=== PATIENT | female | born 1955 | race Caucasian/White ===

== ENCOUNTER → 2018-06-12 | Outpatient (CLI) | payer OTHER ==
[~2018-06-12] MED LIST: ALBU90OI INH; ALBU90OI61 INH; AMLO10 PO; BAYER CHEWABLE81 MG PO; CYAN1000 PO; Citrate Of Mag300 ML PO; HYDACE5 PO; K-Dur20 MEQ PO; LAVAP17G PO; LEVE500 PO; LISI20 PO; METO50 PO; METO50ER PO; Mucinex600 MG PO; NITR.4SL SL; OMEP20ER PO; ONDA4 PO; ONDA4ODT MM; ONDA8ODT MM; PANT20 PO; PARO20 PO; PRAV10 PO; PROC10 PO; PROC25S PR; PROM25 PO; SPACE CHAMBER1 EACH MC; Ventolin/Prove6.7 GM; Zithromax250 MG PO; Zofran Odt4 MG PO; Zofran Odt4 MG SL
[2018-06-12 15:34] LABS: BASOPHILS ABSOLUTE AUTO 0.03 K/mm3 (0.00-0.23); BASOPHILS PERCENT AUTO 0 % (0-2); EOSINOPHILS ABSOLUTE AUTO 0.12 K/mm3 (0.00-0.68); EOSINOPHILS PERCENT AUTO 1 % (0-6); Hematocrit 43.2 % (33.0-51.0); Hemoglobin 15.1 g/dL (11.5-16.0); IMMATURE GRAN ABSOLUTE AUTO 0.03 K/mm3 (0.00-0.10); IMMATURE GRAN PERCENT AUTO 0 % (0-1); LYMPHOCYTES ABSOLUTE AUTO 1.66 K/mm3 (0.84-5.20); LYMPHOCYTES PERCENT AUTO 16 % (21-46); MONOCYTES ABSOLUTE AUTO 0.64 K/mm3 (0.16-1.47); MONOCYTES PERCENT AUTO 6 % (4-13); Mean Corpuscular HGB 31.1 pg (26.0-34.0); Mean Corpuscular Volume 89 fL (80-100); NEUTROPHILS ABSOLUTE AUTO 7.82 K/mm3 (1.96-9.15); NEUTROPHILS PERCENT AUTO 76 % (41-73); Platelet Count 311 K/mm3 (150-400); RDW Coefficient Variation 11.6 % (11.7-14.2); RDW Standard Deviation 37.2 fL (35.1-46.3); Red Blood Cell Count 4.85 M/mm3 (3.80-5.20)
[2018-06-12 15:44] LABS: Albumin, Blood 4.1 g/dL (3.4-5.0); Albumin/Globulin Ratio 1.2 (0.8-1.8); Bilirubin, Total 0.5 mg/dL (0.1-1.0); Bun/Creatinine Ratio 11.6 (12.0-20.0); Calcium, Blood 9.2 mg/dL (8.5-10.1); Creatinine, Blood 1.21 mg/dL (0.40-1.00); Globulin, Blood 3.3 g/dL (2.2-4.0); Potassium, Blood 3.9 mmol/L (3.5-5.5); Total Protein, Blood 7.4 g/dL (6.4-8.2)
== END | disposition home or self-care (01) ==
LOC: LAB EV 15:28 → LAB SHORT 15:28
PROVIDERS: Physician Assistant
DX: I10 Essential (primary) hypertension (principal)
CPT/HCPCS: 80053; 85025

== ENCOUNTER 2019-07-03 10:34 | Inpatient (IN) | payer OTHER ==
[~2019-07-03] VITALS: Ht 172.7 cm; Wt 66.2 kg
[~2019-07-03 10:34] MED LIST changes: +DOCU100 PO; +Kristalose20 GM PO; +LISI5 PO; +METO25ER PO; +MIRALAX17 GM PO; +ONDA8 PO; +Zofran8 MG PO
[2019-07-03] MEDS ORDERED: CLON.1 PO (11:21)
[2019-07-03] MEDS ORDERED: Prinivil5 MG PO (11:21)
[2019-07-03] MEDS ORDERED: GABA300 PO (11:21)
[2019-07-03] MEDS ORDERED: OXYC5 PO (11:21)
[2019-07-03] MEDS ORDERED: Amlodipine Besy10 MG PO (11:25)
[2019-07-03] MEDS ORDERED: Zantac150 MG PO (11:25)
[2019-07-03] MEDS ORDERED: Lactulose10 GM/151 PO (11:25)
[2019-07-03] MEDS ORDERED: Protonix40 MG PO (11:25)
[2019-07-03] MEDS ORDERED: Adult Low Dose81 MG PO (11:25)
[2019-07-03] MEDS ORDERED: Hydrocodone-Ap1 EA23 PO (11:25)
[2019-07-03 11:52] LABS: Source, Urine Clean Catch
[2019-07-03 11:56] LABS: Appearance, Urine Cloudy (Clear); BASOPHILS ABSOLUTE AUTO 0.07 K/mm3 (0.00-0.23); BASOPHILS PERCENT AUTO 0 % (0-2); Blood, Urine 5+ (Neg); Color, Urine Amber (P-Yellow); EOSINOPHILS ABSOLUTE AUTO 0.01 K/mm3 (0.00-0.68); EOSINOPHILS PERCENT AUTO 0 % (0-6); Glucose Qualitative, Urine 1+ (Neg); Hematocrit 49.4 % (33.0-51.0); Hemoglobin 17.3 g/dL (11.5-16.0); IMMATURE GRAN ABSOLUTE AUTO 0.18 K/mm3 (0.00-0.10); IMMATURE GRAN PERCENT AUTO 1 % (0-1); Ketones, Urine 2+ (Neg); LYMPHOCYTES ABSOLUTE AUTO 0.92 K/mm3 (0.84-5.20); LYMPHOCYTES PERCENT AUTO 3 % (21-46); Leukocyte Esterase, Urine 1+ (Neg); MONOCYTES ABSOLUTE AUTO 2.17 K/mm3 (0.16-1.47); MONOCYTES PERCENT AUTO 8 % (4-13); Mean Corpuscular HGB 30.6 pg (26.0-34.0); Mean Corpuscular Volume 87 fL (80-100); NEUTROPHILS ABSOLUTE AUTO 24.47 K/mm3 (1.96-9.15); NEUTROPHILS PERCENT AUTO 88 % (41-73); Nitrite, Urine Neg (Neg); Protein, Urine 4+ (Neg); RDW Coefficient Variation 11.7 % (11.7-14.2); RDW Standard Deviation 37.7 fL (35.1-46.3); Red Blood Cell Count 5.65 M/mm3 (3.80-5.20); Specific Gravity, Urine 1.025 (1.003-1.022); Urobilinogen, Urine 1+ (Normal); White Blood Cell Count 27.82 K/mm3 (4.00-11.30)
[2019-07-03 12:12] LABS: Albumin, Blood 4.1 g/dL (3.4-5.0); Albumin/Globulin Ratio 1.1 (0.8-1.8); Bilirubin, Total 0.8 mg/dL (0.1-1.0); Bun/Creatinine Ratio 15.4 (12.0-20.0); Calcium, Blood 9.2 mg/dL (8.5-10.1); Creatinine, Blood 1.82 mg/dL (0.40-1.00); Globulin, Blood 3.9 g/dL (2.2-4.0); Potassium, Blood 3.3 mmol/L (3.5-5.5); Troponin I 0.016 ng/mL (0.000-0.040)
[2019-07-03 12:24] LABS: Mean Platelet Volume 9.5 fL (9.1-12.4); Platelet Count 328 K/mm3 (150-400)
[2019-07-03 12:28] LABS: Bilirubin, Urine 1+ (Neg)
[2019-07-03 12:30] LABS: Amorphous Mod (0-Heavy); Bacteria Many /hpf; Squamous Epithelial Cells Few /hpf (Few)
[2019-07-03] MEDS ORDERED: KEPPRA250 MG PO (15:16)
--- NOTE | 2019-07-03 19:05 | NUR ---
PATIENT ARRIVES AROUND 1830. IV LEFT A/C LEAKING. IV LEFT UPPER CHEST INFILTRATED. BOTH IV'S PULLED. PATIENT VOMITED TWICE ABOUT 50-100 ML EACH TIME. NO PATIENT ID BAND ON, REPLACED. PATIENT TAKES OFF DRESSING FROM CHEST IV WITH SITE BLEEDING. DRESSING REPLACED. CHECKED FEET FOR POSSIBLE IV SITE, BUT NONE OBVIOUS. REPORT GIVEN TO VANI GUILLEN. AWARE PATIENT NEEDS IV ANTIHYPER TENSIVE AND ANTIVOMITING MED. SUPERVISOR VARNISH AWARE NEEDS IV.
--- NOTE | 2019-07-03 22:48 | NUR ---
HOSPITALIST LIFTER NOTIFIED OF PT INCREASED HEART RATE STATUS OF THE 130'S-140'S AND THAT SHE HAS SUSTAINED THIS RATE FOR GOING ON 2 HOURS. WE ARE GOING TO CONTINUE THE IVF'S AND CONTINUE TO MONITOR HEART RATE. FEELS THAT INCREASED HEART RATE DUE TO DEHYDRATION.
--- NOTE | 2019-07-04 00:07 | NUR ---
CALL RECEIVED FROM [facility] HEART RATE DOWN TO 103.
--- NOTE | 2019-07-04 05:23 | NUR ---
shift summary PT IV PLACED IN LEFT AC INFILTRATED, NEW IV PLACED RIGHT AC PER WILMER CHURCH. IVF'S CONTINUE TO INFUSE. PT HEART RATE HAS STAYED DOWN IN THE UPPER 80'S-90'S. PT LOOKING AND FEELING BETTER THIS AM. IS NOW STEADY ON FEET. IS C/O SOME HEARTBURN, SCHEDULED PROTONIX GIVEN. NO DIARRHEA NOTED THIS SHIFT. HAS VOIDED X2. MEDICATED X1 WITH APRESOLINE WHICH HAS BROUGHT B/P DOWN TO THE 120'S-130'S SYSTOLIC. ALSO MEDICATED X2 FOR NAUSEA. WILL CONTINUE TO MONITOR.
[2019-07-04 06:03] LABS: BASOPHILS ABSOLUTE AUTO 0.05 K/mm3 (0.00-0.23); BASOPHILS PERCENT AUTO 0 % (0-2); EOSINOPHILS ABSOLUTE AUTO 0.01 K/mm3 (0.00-0.68); EOSINOPHILS PERCENT AUTO 0 % (0-6); Hematocrit 44.6 % (33.0-51.0); Hemoglobin 15.2 g/dL (11.5-16.0); IMMATURE GRAN ABSOLUTE AUTO 0.22 K/mm3 (0.00-0.10); IMMATURE GRAN PERCENT AUTO 1 % (0-1); LYMPHOCYTES ABSOLUTE AUTO 1.43 K/mm3 (0.84-5.20); LYMPHOCYTES PERCENT AUTO 5 % (21-46); MONOCYTES ABSOLUTE AUTO 2.14 K/mm3 (0.16-1.47); MONOCYTES PERCENT AUTO 8 % (4-13); Mean Corpuscular HGB 30.9 pg (26.0-34.0); Mean Corpuscular HGB Conc 34.1 g/dL (31.5-36.5); Mean Platelet Volume 9.5 fL (9.1-12.4); NEUTROPHILS ABSOLUTE AUTO 24.34 K/mm3 (1.96-9.15); NEUTROPHILS PERCENT AUTO 86 % (41-73); Platelet Count 245 K/mm3 (150-400); RDW Coefficient Variation 12.2 % (11.7-14.2); RDW Standard Deviation 40.1 fL (35.1-46.3); Red Blood Cell Count 4.92 M/mm3 (3.80-5.20); White Blood Cell Count 28.19 K/mm3 (4.00-11.30)
[2019-07-04 06:12] LABS: Mean Corpuscular Volume 91 fL (80-100)
[2019-07-04 06:23] LABS: Bun/Creatinine Ratio 21.6 (12.0-20.0); Calcium, Blood 7.9 mg/dL (8.5-10.1); Creatinine, Blood 1.11 mg/dL (0.40-1.00); Potassium, Blood 3.5 mmol/L (3.5-5.5)
--- NOTE | 2019-07-04 07:34 | NUR ---
ADVISED PATIENT FEELING BETTER. LAST TIME HAD ANTINAUSEA MED WAS @02AM. VS BETTER THAN YESTERDAY W/ B.P. 132/87. REQUEST CLEAR LIQUIDS. OK TO ORDER.
--- NOTE | 2019-07-04 11:45 | NUR ---
ADVISED SINCE PATIENT WAS VOMITING FOR NUMBER OF DAYS C/O THROAT HURTING AND DOES NOT WANT TO SWALLOW ANYTHING DUE TO PAIN. ORDER CEPACOL.
--- NOTE | 2019-07-04 18:51 | NUR ---
ALERT. ORIENTED. AMBULATORY X 2 IN HALLWAY. TALKED TO ABOUT SOMETHING ELSE,LIDOCAINE, FOR THROAT PAIN CEPACOL NOT WORKING. PATIENT NOT EATTING DUE TO PAIN.LIDOCAINE ORDERED PRN BEFORE EATTING. CHECKING IV WHENEVER GOING IN TO CHECK ON PATIENT TO MAKE SURE RUNNING OK HAD 2 IV'S NOT WORKING YESTERDAY. PATIENT DENIES PAIN AT IV SITE AND NO SWELLING OR REDNESS. REPORT TO NIGHT RN.
--- NOTE | 2019-07-05 02:36 | NUR ---
PT OUT TO SMOKE.
--- NOTE | 2019-07-05 04:33 | NUR ---
SHIFT SUMMARY PT ATTEMPTED TO HAVE SOUP AFTER LIDOCAINE SWISH+SWALLOW ORAL SOLUTION; UNSUCCESSFUL. PT STILL UNABLE TO TOLERATE SWALLOWING FOOD OR LIQUID D/T THROAT PAIN. NO N/V/D. PT IS A&O X 4, INDEPENDENT IN RM. PT OUT TO SMOKE SEVERAL TIMES TONIGHT. LR RUNNING @ 150 ML/HR. PT LAYING IN BED AT THIS TIME, ABLE TO MAKE NEEDS KNOWN. WILL CONT TO MONITOR AND PROVIDE CARE UNTIL PRESUMED BY ONCOMING RN.
[2019-07-05 04:53] LABS: BASOPHILS ABSOLUTE AUTO 0.03 K/mm3 (0.00-0.23); BASOPHILS PERCENT AUTO 0 % (0-2); EOSINOPHILS PERCENT AUTO 0 % (0-6); Hematocrit 39.9 % (33.0-51.0); Hemoglobin 13.2 g/dL (11.5-16.0); IMMATURE GRAN ABSOLUTE AUTO 0.11 K/mm3 (0.00-0.10); IMMATURE GRAN PERCENT AUTO 1 % (0-1); LYMPHOCYTES ABSOLUTE AUTO 1.45 K/mm3 (0.84-5.20); LYMPHOCYTES PERCENT AUTO 8 % (21-46); MONOCYTES PERCENT AUTO 8 % (4-13); Mean Corpuscular HGB 30.6 pg (26.0-34.0); Mean Corpuscular HGB Conc 33.1 g/dL (31.5-36.5); Mean Corpuscular Volume 92 fL (80-100); Mean Platelet Volume 9.5 fL (9.1-12.4); NEUTROPHILS ABSOLUTE AUTO 14.17 K/mm3 (1.96-9.15); NEUTROPHILS PERCENT AUTO 83 % (41-73); Platelet Count 214 K/mm3 (150-400); RDW Coefficient Variation 11.9 % (11.7-14.2); RDW Standard Deviation 40.3 fL (35.1-46.3); Red Blood Cell Count 4.32 M/mm3 (3.80-5.20); White Blood Cell Count 17.16 K/mm3 (4.00-11.30)
[2019-07-05 05:19] LABS: Anion Gap 7 mmol/L (6-16); Blood Urea Nitrogen 18 mg/dL (8-24); Bun/Creatinine Ratio 17.5 (12.0-20.0); CO2, Blood 28 mmol/L (21-32); Chloride, Blood 109 mmol/L (98-108); Creatinine, Blood 1.03 mg/dL (0.40-1.00); Glomerular Filtration Rate 58 (60-); Glucose, Blood 111 mg/dL (70-99); Phosphorus, Blood 1.6 mg/dL (2.5-4.9); Potassium, Blood 3.5 mmol/L (3.5-5.5); Sodium, Blood 144 mmol/L (136-145)
--- NOTE | 2019-07-06 04:56 | NUR ---
SHIFT SUMMARY NO ACUTE CHANGES TONIGHT. PT OUT SEVERAL TIMES TO SMOKE, AMBULATES INDEPENDENTLY. NO N/V TONIGHT. FULL LIQUIDS UNTIL MIDNIGHT, CLEAR LIQUIDS AFTER MIDNIGHT, AND NPO AFTER BREAKFAST FOR UPPER ENDOSCOPY TODAY PER DR HARPER. PT SHOWERED TONIGHT. LR RUNNING @ 150 ML/HR. WILL CONT TO MONITOR AND PROVIDE CARE UNTIL PRESUMED BY ONCOMING RN.
--- NOTE | 2019-07-06 11:14 | NUR ---
PT TAKEN DOWN TO DAY SURGERY FOR SCOPE
--- NOTE | 2019-07-06 11:24 | NUR ---
PT A&OX3. FLAT AFFECT. PT REPORTS 06/19 "THROAT" PAIN THAT "GOES CLEAR DOWN INTO MY STOMACH." PT VOICE APPEARS HOARSE. LUNGS WITH RHONCHI THAT CLEAR WITH COUGH. PT IS CURRENT EVERY DAY SMOKER. NPO SINCE CLEAR LIQUID DIET AT 0800. HISTORY AND ALLERGIES REVIEWED.
--- NOTE | 2019-07-06 17:41 | NUR ---
SUMMARY PT RESTING QUIETLY IN BED, HAS BEEN PLEASANT AND COOPERATIVE WITH CARE, HAD AN UPPER ENDOSCOPY TODAY, HORACE WELL, PT UP IN THE HALLS WALKING INDEPENDENTLY, ENCOURAGED THE PT TO TAKE A WHEELCHAIR FOR SAFETY AND TO PREVENT FALLS, PT HORACE CLEAR LIQUID DIET, ADVANCED TO FULL LIQUID FOR DINNER, VSS, NO ACUTE CHANGES, WILL CONT TO MONITOR
[2019-07-07] MEDS ORDERED: CEPACOL SORE T1 EACH MM (09:30)
[2019-07-07] MEDS ORDERED: ACET325 PO (09:30)
[2019-07-07] MEDS ORDERED: NICO21TP TOP (09:30)
[2019-07-07] MEDS ORDERED: Carafate1 GM/10 ML PO (09:31)
--- NOTE | 2019-07-07 10:38 | NUR ---
SUMMARY/DISCHARGE PT BEING DISCHARGED TO HOME, PT VERBALIZED UNDERSTANDING OF DISCHARGE INSTRUCTIONS REGARDING FOLLOW UP, MEDICATIONS AND DIET, PT STATES SHE PREFERS TO MAKE HER OWN FOLLOW UP APPOINTMENTS, PT WAITING FOR HER RIDE
--- NOTE | 2019-07-07 12:06 | NUR ---
PT'S SPOUSE HER AND WAS ABLE TO TAKE HER OUT SAFELY VIA WHEELCHAIR
[2019-08-19] MEDS ORDERED: ALBU90OI INH (08:45)
[2019-08-19] MEDS ORDERED: LEVE500 PO (08:46)
[2019-08-19] MEDS ORDERED: Ranitidine HCl150 M1 PO (08:46)
[2019-08-19] MEDS ORDERED: METO25ER PO (08:46)
[2019-08-19] MEDS ORDERED: FLUT1DIS5 INH (08:47)
== END 2019-07-07 12:00 | disposition home or self-care (01) | DRG 392 ==
LOC: ER 10:34 → MEDS 15:54
PROVIDERS: Emergency Medicine; Internal Medicine Gastroenterology; ADMIT Internal Medicine
PROC: 0DD58ZX Extraction of Esophagus, Via Natural or Artificial Opening Endoscopic, Diagnostic (ICD-10-PCS; principal; 2019-07-06 12:00)
DX: K52.9 Noninfective gastroenteritis and colitis, unspecified (principal); K50.90 Crohn's disease, unspecified, without complications; N17.9 Acute kidney failure, unspecified; K22.10 Ulcer of esophagus without bleeding; N39.0 Urinary tract infection, site not specified; I10 Essential (primary) hypertension; F17.210 Nicotine dependence, cigarettes, uncomplicated; G40.909 Epilepsy, unspecified, not intractable, without status epilepticus; E11.9 Type 2 diabetes mellitus without complications; Z79.82 Long term (current) use of aspirin; E87.6 Hypokalemia; E86.0 Dehydration; F12.20 Cannabis dependence, uncomplicated; R13.10 Dysphagia, unspecified; K44.9 Diaphragmatic hernia without obstruction or gangrene; K21.0 Gastro-esophageal reflux disease with esophagitis
CPT/HCPCS: 36415; 74177; 80048; 80053; 80069; 81001; 82947; 83605; 83690; 84443; 84484; 85025; 87040; 87086; 88305; 88312; 88342; 93005; 93010; 96361; 96374-59; 96375; 96376; 99285-25; J0360; J1650; J1956; J2405; J2550; J2704; J3480; J7030; J7120; P9612; Q9967

== ENCOUNTER 2019-08-13 23:59 | Emergency (ER) | payer OTHER ==
[~2019-08-13] VITALS: Ht 172.7 cm; Wt 68.0 kg
[~2019-08-13 23:59] MED LIST changes: +ACET325 PO; +Adult Low Dose81 MG PO; +Amlodipine Besy10 MG PO; +CEPACOL SORE T1 EACH MM; +CLON.1 PO; +Carafate1 GM/10 ML PO; +GABA300 PO; +Hydrocodone-Ap1 EA23 PO; +KEPPRA250 MG PO; +Lactulose10 GM/151 PO; +NICO21TP TOP; +OXYC5 PO; +Prinivil5 MG PO; +Protonix40 MG PO; +Zantac150 MG PO
[2019-08-14] MEDS ORDERED: Mupirocin22 GM TOP (00:45)
[2019-08-14] MEDS ORDERED: CEPH500 PO (00:45)
[2019-08-14] MEDS ORDERED: Bactrim Ds Tab1 EACH PO (00:45)
[2019-08-19] MEDS ORDERED: ALBU90OI INH (08:45)
[2019-08-19] MEDS ORDERED: METO25ER PO (08:46)
[2019-08-19] MEDS ORDERED: LEVE500 PO (08:46)
[2019-08-19] MEDS ORDERED: Ranitidine HCl150 M1 PO (08:46)
[2019-08-19] MEDS ORDERED: FLUT1DIS5 INH (08:47)
== END 2019-08-14 01:10 | disposition home or self-care (01) ==
LOC: ER 23:59
DX: S00.81XA Abrasion of other part of head, initial encounter (principal); L03.211 Cellulitis of face; I10 Essential (primary) hypertension; F32.9 Major depressive disorder, single episode, unspecified; F41.9 Anxiety disorder, unspecified; F17.200 Nicotine dependence, unspecified, uncomplicated; Z91.030 Bee allergy status; Z79.899 Other long term (current) drug therapy; Z79.82 Long term (current) use of aspirin; X58.XXXA Exposure to other specified factors, initial encounter
CPT/HCPCS: 99282

== ENCOUNTER 2019-08-25 10:19 | Day surgery (SDC) | payer OTHER ==
[~2019-08-25] VITALS: Ht 172.7 cm; Wt 68.7 kg
[~2019-08-25 10:19] MED LIST changes: +Bactrim Ds Tab1 EACH PO; +CEPH500 PO; +FLUT1DIS5 INH; +Mupirocin22 GM TOP; +Ranitidine HCl150 M1 PO
== END 2019-08-25 12:44 | disposition home or self-care (01) ==
LOC: ORSCSDS 10:19
PROVIDERS: Internal Medicine Gastroenterology
PROC: 0DB58ZX Excision of Esophagus, Via Natural or Artificial Opening Endoscopic, Diagnostic (ICD-10-PCS; principal; 2019-08-25 11:45)
DX: K21.0 Gastro-esophageal reflux disease with esophagitis (principal); K44.9 Diaphragmatic hernia without obstruction or gangrene; I10 Essential (primary) hypertension; J45.909 Unspecified asthma, uncomplicated; F41.8 Other specified anxiety disorders; E11.9 Type 2 diabetes mellitus without complications; G40.909 Epilepsy, unspecified, not intractable, without status epilepticus; F17.210 Nicotine dependence, cigarettes, uncomplicated; Z79.82 Long term (current) use of aspirin; Z79.899 Other long term (current) drug therapy
CPT/HCPCS: 88305; J2704; J7120

== ENCOUNTER 2019-12-07 11:10 | Emergency (ER) | payer OTHER ==
[~2019-12-07] VITALS: Ht 172.7 cm; Wt 76.7 kg
[2019-12-07] MEDS ORDERED: Augmentin 875-1 EACH PO (14:45)
== END 2019-12-07 14:48 | disposition home or self-care (01) ==
LOC: ER 11:10
DX: J32.9 Chronic sinusitis, unspecified (principal); H92.02 Otalgia, left ear; E04.1 Nontoxic single thyroid nodule; I10 Essential (primary) hypertension; F41.9 Anxiety disorder, unspecified; G40.909 Epilepsy, unspecified, not intractable, without status epilepticus; F17.200 Nicotine dependence, unspecified, uncomplicated; Z76.0 Encounter for issue of repeat prescription; Z91.030 Bee allergy status; Z79.82 Long term (current) use of aspirin; Z79.51 Long term (current) use of inhaled steroids
CPT/HCPCS: 36415; 70450; 70486; 93005; 93010; 99284-25

== ENCOUNTER 2019-12-22 14:21 | Day surgery (SDC) | payer OTHER ==
[~2019-12-22 14:21] MED LIST changes: +Augmentin 875-1 EACH PO
== END 2019-12-22 22:53 | disposition home or self-care (01) ==
LOC: US 14:21
DX: R22.1 Localized swelling, mass and lump, neck (principal)
CPT/HCPCS: 38505; 76942

== ENCOUNTER 2020-07-21 22:32 | Inpatient (IN) | payer OTHER ==
[~2020-07-21] VITALS: Ht 172.7 cm; Wt 75.8 kg
[2020-07-21] MEDS ORDERED: PANT20 PO (22:48)
[2020-07-21] MEDS ORDERED: ERGO400 PO (22:48)
[2020-07-21] MEDS ORDERED: LISI5 PO (22:48)
[2020-07-21] MEDS ORDERED: AMLO10 PO (22:48)
[2020-07-21] MEDS ORDERED: METO25ER PO (22:48)
[2020-07-21] MEDS ORDERED: Aspir 8181 MG PO (22:48)
[2020-07-21 23:14] LABS: BASOPHILS ABSOLUTE AUTO 0.03 K/mm3 (0.00-0.23); BASOPHILS PERCENT AUTO 0 % (0-2); EOSINOPHILS ABSOLUTE AUTO 0.06 K/mm3 (0.00-0.68); EOSINOPHILS PERCENT AUTO 0 % (0-6); Hematocrit 49.3 % (33.0-51.0); Hemoglobin 16.5 g/dL (11.5-16.0); IMMATURE GRAN ABSOLUTE AUTO 0.05 K/mm3 (0.00-0.10); IMMATURE GRAN PERCENT AUTO 0 % (0-1); LYMPHOCYTES ABSOLUTE AUTO 2.05 K/mm3 (0.84-5.20); LYMPHOCYTES PERCENT AUTO 15 % (21-46); MONOCYTES ABSOLUTE AUTO 1.04 K/mm3 (0.16-1.47); MONOCYTES PERCENT AUTO 8 % (4-13); Mean Corpuscular HGB 30.2 pg (26.0-34.0); Mean Corpuscular HGB Conc 33.5 g/dL (31.5-36.5); Mean Corpuscular Volume 90 fL (80-100); Mean Platelet Volume 8.9 fL (9.1-12.4); NEUTROPHILS ABSOLUTE AUTO 10.68 K/mm3 (1.96-9.15); NEUTROPHILS PERCENT AUTO 77 % (41-73); Platelet Count 366 K/mm3 (150-400); RDW Standard Deviation 39.7 fL (35.1-46.3); Red Blood Cell Count 5.46 M/mm3 (3.80-5.20); White Blood Cell Count 13.91 K/mm3 (4.00-11.30)
[2020-07-21 23:44] LABS: Albumin, Blood 4.1 g/dL (3.4-5.0); Albumin/Globulin Ratio 1.1 (0.8-1.8); Bilirubin, Total 0.7 mg/dL (0.1-1.0); Calcium, Blood 9.4 mg/dL (8.5-10.1); Creatinine, Blood 1.4 mg/dL (0.40-1.00); Globulin, Blood 3.7 g/dL (2.2-4.0); Potassium, Blood 3.9 mmol/L (3.5-5.5); Total Protein, Blood 7.8 g/dL (6.4-8.2)
[2020-07-22 04:20] LABS: Bun/Creatinine Ratio 10.9 (12.0-20.0); Calcium, Blood 8.4 mg/dL (8.5-10.1); Creatinine, Blood 1.19 mg/dL (0.40-1.00); Potassium, Blood 4.1 mmol/L (3.5-5.5)
--- NOTE | 2020-07-22 04:26 | NUR ---
SHIFT SUMMARY NEW ADMIT THIS AM. AAOX4. NPO. PT REPORTING INCREASED DISCOMFORT WITH MOVEMENT, DECREASED WITH REST. DENIES PAIN MEDS/NAUSEA/EMESIS. ABD SOFT/TENDER. HYPOACTIVE BTX4. PT WITH GENERALIZED WEAKNESS, BED ALARM ON FOR SAFETY. PT ORIENTED TO ROOM + CALL LIGHT USE, ENCOURAGE USE OF CALL LIGHT FOR ASSISTANCE TO RESTROOM. PT CURRENTLY RESTING IN BED WITH CALL LIGHT IN REACH.
[2020-07-22 08:39] LABS: BASOPHILS ABSOLUTE AUTO 0.03 K/mm3 (0.00-0.23); BASOPHILS PERCENT AUTO 0 % (0-2); EOSINOPHILS ABSOLUTE AUTO 0.13 K/mm3 (0.00-0.68); EOSINOPHILS PERCENT AUTO 1 % (0-6); Hematocrit 41.7 % (33.0-51.0); Hemoglobin 13.6 g/dL (11.5-16.0); IMMATURE GRAN ABSOLUTE AUTO 0.05 K/mm3 (0.00-0.10); IMMATURE GRAN PERCENT AUTO 1 % (0-1); LYMPHOCYTES ABSOLUTE AUTO 1.92 K/mm3 (0.84-5.20); LYMPHOCYTES PERCENT AUTO 18 % (21-46); MONOCYTES ABSOLUTE AUTO 1.02 K/mm3 (0.16-1.47); MONOCYTES PERCENT AUTO 10 % (4-13); Mean Corpuscular HGB 30.7 pg (26.0-34.0); Mean Corpuscular HGB Conc 32.6 g/dL (31.5-36.5); Mean Corpuscular Volume 94 fL (80-100); NEUTROPHILS ABSOLUTE AUTO 7.28 K/mm3 (1.96-9.15); NEUTROPHILS PERCENT AUTO 70 % (41-73); Platelet Count 292 K/mm3 (150-400); RDW Coefficient Variation 12.2 % (11.7-14.2); RDW Standard Deviation 42.5 fL (35.1-46.3); Red Blood Cell Count 4.43 M/mm3 (3.80-5.20); White Blood Cell Count 10.43 K/mm3 (4.00-11.30)
[2020-07-22 08:54] LABS: Bun/Creatinine Ratio 11.4 (12.0-20.0); Calcium, Blood 8.4 mg/dL (8.5-10.1); Creatinine, Blood 1.14 mg/dL (0.40-1.00); Potassium, Blood 4.1 mmol/L (3.5-5.5)
--- NOTE | 2020-07-22 16:02 | NUR ---
ASSUMING CARE AT THIS TIME.
--- NOTE | 2020-07-22 16:21 | NUR ---
SHIFT SUMMARY PT IS ALERT AND ORIENTEDx4, FOLLOWS DIRECTIONS. INTIALLY THIS AM PT WAS HAVING ABD PAIN AND NOT PASSING GAS. LATE MORNING PT WAS FEELING BETTER AND STARTED TO PASS GAS. ADVANCE PT TO FULL LIQUID DIET. PT HAD LARGE LUNCH AND WENT FOR A WALK AND WAS HAVING ABD PAIN AGAIN. PT MEDICATED PRN, SEE EMAR AND INSTRUCTED TO SLOW DOWN ON PO INTAKE, PT HAS IMPROVED AGAIN THIS AFTERNOON. PT HAS WALKED IN THE HALLWAYS MULTIPLE TIMES INDEPENDATLY. VITALS HAVE REMAINED STABLE. CARE HANDOFF GIVEN TO CONNER GUILLEN.
--- NOTE | 2020-07-23 04:04 | NUR ---
SHIFT SUMMARY PT RESTED WELL T/O NIGHT. AAOX4. FULL LIQUID DIET, TOLERATING WELL. DISCOMFORT CONTROLLED WITH 25mcg FENTANYL X1 THIS SHIFT WITH MILD NAUSEA CONTROLLED WITH ZOFRAN, NO EMESIS. PT REPORTING LOOSE STOOLS YESTARDAY WITH SMALL AMOUNTS OF FLATUS. INDEPENDENT IN ROOM + OUT OF ROOM FREQUENTLY TO AMBULATE. IVF PER ORDERS. PT CURRENTLY AMBULATING IN [place], [facility].
--- NOTE | 2020-07-23 17:16 | NUR ---
SHIFT SUMMARY PT A&OX4, VSS, TCDB EDU & ENC Q1H/DEMONSTRATED, REP PASSING FLATUS, DENIES BM TODAY, AMBULATING INDEPENDENT TO BRP/HALLWAYS. IVF NS @ 75 MG/HR. FENT 25 MCG X2 DOSES, ZOFRAN X2 DOSES TODAY; NICOTINE PATCH R SHOULDER. HORACE CLEAR LIQ DIET, EDU/ENC TO KEEP INTAKE LOW. WILL REPORT TO ONCOMING EDUAR GUILLEN.
--- NOTE | 2020-07-24 04:14 | NUR ---
SHIFT SUMMARY PT RESTED WELL THIS SHIFT. AAOX4. SIPS CLEARS. PT UP AMBULATING IN HALLS MULTIPLE TIMES INDEPENDENTLY THIS SHIFT. REPORTING MODERATE AMOUNTS OF FLATUS, NO BM. IVF PER ORDERS. NO ACUTE CHANGES THIS SHIFT. PT CURRENTLY RESTING IN BED WITH CALL LIGHT IN REACH.
[2020-07-24 05:03] LABS: Hematocrit 37.4 % (33.0-51.0); Hemoglobin 12.5 g/dL (11.5-16.0); Mean Corpuscular HGB 30.6 pg (26.0-34.0); Mean Corpuscular HGB Conc 33.4 g/dL (31.5-36.5); Mean Corpuscular Volume 92 fL (80-100); Platelet Count 276 K/mm3 (150-400); RDW Coefficient Variation 11.7 % (11.7-14.2); RDW Standard Deviation 39.5 fL (35.1-46.3); Red Blood Cell Count 4.08 M/mm3 (3.80-5.20); White Blood Cell Count 6.39 K/mm3 (4.00-11.30)
[2020-07-24 05:23] LABS: Bun/Creatinine Ratio 4.9 (12.0-20.0); Calcium, Blood 8.2 mg/dL (8.5-10.1); Creatinine, Blood 1.02 mg/dL (0.40-1.00); Potassium, Blood 3.5 mmol/L (3.5-5.5)
--- NOTE | 2020-07-24 14:24 | NUR ---
FULL LQS PT HAS TOLERATED FULL LQS SINCE THIS AM. DENIES N/V; HAVING BMS & PASSING GAS. AMBULATING FREQ IN HALLWAYS. REQUESTS FOR SOFT DIET. DIET CHANGED.
--- NOTE | 2020-07-24 17:33 | NUR ---
DISCHARGE PT UNDERSTANDS INSTRUCTIONS. CONT TO TOLERATE SOFT DIET. PASSING GAS. AMBULATING FREQ. DECLINED W/C OUT. AMBULATED OUT. SCRIPT CALLED TO [facility].
== END 2020-07-24 17:25 | disposition home or self-care (01) | DRG 389 ==
LOC: ER 22:32 → SURS 22:33
PROVIDERS: Internal Medicine; Student in an Organized Health Care Education/Training Program; ADMIT Internal Medicine
DX: K56.600 Partial intestinal obstruction, unspecified as to cause (principal); N17.9 Acute kidney failure, unspecified; I10 Essential (primary) hypertension; I25.10 Atherosclerotic heart disease of native coronary artery without angina pectoris; K21.9 Gastro-esophageal reflux disease without esophagitis; Z87.891 Personal history of nicotine dependence; Z79.82 Long term (current) use of aspirin
CPT/HCPCS: 36415; 74177; 80048; 80053; 83605; 83690; 85025; 85027; 93005; 93010; 96360; 99285-25; C9113; J1650; J2405; J3010; J7030; J7120; Q9967

== ENCOUNTER 2020-11-10 14:45 | Emergency (ER) | payer OTHER ==
[~2020-11-10 14:45] MED LIST changes: +Aspir 8181 MG PO; +ERGO400 PO
== END 2020-11-10 15:37 | disposition left against medical advice (07) ==
LOC: ER 14:45
DX: Z53.21 Procedure and treatment not carried out due to patient leaving prior to being seen by health care provider (principal)

== ENCOUNTER 2021-02-05 13:11 | Emergency (ER) | payer OTHER ==
[~2021-02-05] VITALS: Ht 175.3 cm; Wt 72.6 kg
[2021-02-05] MEDS ORDERED: FLUT1DIS5 (14:25)
[2021-02-05] MEDS ORDERED: GABA300 (14:25)
== END 2021-02-05 16:24 | disposition home or self-care (01) ==
LOC: ER 13:11
DX: Z01.812 Encounter for preprocedural laboratory examination (principal); M25.551 Pain in right hip; G40.909 Epilepsy, unspecified, not intractable, without status epilepticus; I10 Essential (primary) hypertension; Z20.822 Contact with and (suspected) exposure to COVID-19; E11.9 Type 2 diabetes mellitus without complications; K21.9 Gastro-esophageal reflux disease without esophagitis; F17.210 Nicotine dependence, cigarettes, uncomplicated; Z91.030 Bee allergy status; Z79.82 Long term (current) use of aspirin; Z79.899 Other long term (current) drug therapy; W18.30XA Fall on same level, unspecified, initial encounter
CPT/HCPCS: 73502; 96372; 99283-25; J1885; U0003

== ENCOUNTER 2021-07-31 13:21 | Emergency (ER) | payer OTHER ==
[~2021-07-31] VITALS: Ht 175.3 cm; Wt 72.6 kg
[~2021-07-31 13:21] MED LIST changes: +FLUT1DIS5; +GABA300; +ONDANSETRON 4 MG
[2021-07-31 14:30] LABS: Albumin, Blood 3.8 g/dL (3.4-5.0); Albumin/Globulin Ratio 1.2 (0.8-1.8); Bilirubin, Total 0.6 mg/dL (0.1-1.0); Bun/Creatinine Ratio 6.4 (12.0-20.0); Calcium, Blood 8.9 mg/dL (8.5-10.1); Creatinine, Blood 1.1 mg/dL (0.40-1.00); Globulin, Blood 3.2 g/dL (2.2-4.0); Potassium, Blood 3.4 mmol/L (3.5-5.5)
[2021-07-31 14:38] LABS: BASOPHILS ABSOLUTE AUTO 0.02 K/mm3 (0.00-0.23); BASOPHILS PERCENT AUTO 0 % (0-2); EOSINOPHILS ABSOLUTE AUTO 0.11 K/mm3 (0.00-0.68); EOSINOPHILS PERCENT AUTO 1 % (0-6); Hemoglobin 14.8 g/dL (11.5-16.0); IMMATURE GRAN ABSOLUTE AUTO 0.04 K/mm3 (0.00-0.10); IMMATURE GRAN PERCENT AUTO 1 % (0-1); LYMPHOCYTES ABSOLUTE AUTO 1.36 K/mm3 (0.84-5.20); LYMPHOCYTES PERCENT AUTO 17 % (21-46); MONOCYTES ABSOLUTE AUTO 0.52 K/mm3 (0.16-1.47); MONOCYTES PERCENT AUTO 6 % (4-13); Mean Corpuscular HGB Conc 34.4 g/dL (31.5-36.5); Mean Corpuscular Volume 90 fL (80-100); Mean Platelet Volume 9.3 fL (9.1-12.4); NEUTROPHILS ABSOLUTE AUTO 6.21 K/mm3 (1.96-9.15); NEUTROPHILS PERCENT AUTO 75 % (41-73); Platelet Count 292 K/mm3 (150-400); RDW Coefficient Variation 11.9 % (11.7-14.2); Red Blood Cell Count 4.78 M/mm3 (3.80-5.20); White Blood Cell Count 8.26 K/mm3 (4.00-11.30)
[2021-07-31 15:00] LABS: Source, Urine Clean Catch
[2021-07-31 15:06] LABS: Appearance, Urine Clear (Clear); Bilirubin, Urine Neg (Neg); Blood, Urine 1+ (Neg); Color, Urine Yellow (P-Yellow); Glucose Qualitative, Urine 1+ (Neg); Ketones, Urine 3+ (Neg); Leukocyte Esterase, Urine Neg (Neg); Nitrite, Urine Neg (Neg); Protein, Urine Neg (Neg); Urobilinogen, Urine NORM (Normal)
[2021-07-31 15:28] LABS: Bacteria Rare /hpf; Red Blood Cells, Urine 0-2 /hpf (0-2); Squamous Epithelial Cells Rare /hpf (Few)
[2021-07-31 15:30] LABS: U Amphetamine Screen Not Detected; U Barbituate Screen Not Detected; U Benzodiazapine Screen Not Detected; U Buprenorphine Screen Not Detected; U Cannabinoids Screen DETECTED; U Cocaine Screen Not Detected; U Methadone Screen Not Detected; U Methamphetamine Screen Not Detected; U Opiates Screen DETECTED; U Oxycodone Screen Not Detected; U Phencyclidine Screen Not Detected; U Propoxyphene Screen Not Detected
[2021-07-31] MEDS ORDERED: Colace100 MG PO (15:56)
[2021-07-31 17:04] LABS: White Blood Cells, Urine 0-2 /hpf (0-5)
== END 2021-07-31 16:45 | disposition home or self-care (01) ==
LOC: ER 13:21
PROVIDERS: Physician Assistant
DX: K59.00 Constipation, unspecified (principal); Z91.030 Bee allergy status; Z79.899 Other long term (current) drug therapy; Z79.82 Long term (current) use of aspirin; I10 Essential (primary) hypertension; F32.9 Major depressive disorder, single episode, unspecified; F41.9 Anxiety disorder, unspecified; G40.909 Epilepsy, unspecified, not intractable, without status epilepticus; E11.9 Type 2 diabetes mellitus without complications; K21.9 Gastro-esophageal reflux disease without esophagitis; F17.210 Nicotine dependence, cigarettes, uncomplicated
CPT/HCPCS: 36415; 80053; 81001; 84484; 85025; 93005; 93010; 96374; 96375; 99284-25; J2405; J3010; J7030

== ENCOUNTER 2021-08-09 17:02 | Emergency (ER) | payer OTHER ==
[~2021-08-09] VITALS: Ht 172.7 cm; Wt 72.6 kg
[~2021-08-09 17:02] MED LIST changes: +Colace100 MG PO
[2021-08-09 18:22] LABS: BASOPHILS ABSOLUTE AUTO 0.05 K/mm3 (0.00-0.23); BASOPHILS PERCENT AUTO 0 % (0-2); EOSINOPHILS PERCENT AUTO 1 % (0-6); Hematocrit 50.9 % (33.0-51.0); Hemoglobin 18.4 g/dL (11.5-16.0); IMMATURE GRAN ABSOLUTE AUTO 0.15 K/mm3 (0.00-0.10); IMMATURE GRAN PERCENT AUTO 1 % (0-1); LYMPHOCYTES ABSOLUTE AUTO 1.82 K/mm3 (0.84-5.20); LYMPHOCYTES PERCENT AUTO 15 % (21-46); MONOCYTES ABSOLUTE AUTO 1.44 K/mm3 (0.16-1.47); MONOCYTES PERCENT AUTO 12 % (4-13); Mean Corpuscular HGB 30.8 pg (26.0-34.0); Mean Corpuscular HGB Conc 36.1 g/dL (31.5-36.5); Mean Corpuscular Volume 85 fL (80-100); NEUTROPHILS ABSOLUTE AUTO 8.51 K/mm3 (1.96-9.15); NEUTROPHILS PERCENT AUTO 71 % (41-73); Platelet Count 259 K/mm3 (150-400); RDW Coefficient Variation 11.6 % (11.7-14.2); RDW Standard Deviation 35.5 fL (35.1-46.3); Red Blood Cell Count 5.98 M/mm3 (3.80-5.20); White Blood Cell Count 12.07 K/mm3 (4.00-11.30)
[2021-08-09 18:51] LABS: Albumin, Blood 3.6 g/dL (3.4-5.0); Albumin/Globulin Ratio 0.9 (0.8-1.8); Bilirubin, Total 0.9 mg/dL (0.1-1.0); Bun/Creatinine Ratio 16.6 (12.0-20.0); Calcium, Blood 9.3 mg/dL (8.5-10.1); Creatinine, Blood 1.63 mg/dL (0.40-1.00); Globulin, Blood 3.9 g/dL (2.2-4.0); Potassium, Blood 3.4 mmol/L (3.5-5.5); Total Protein, Blood 7.5 g/dL (6.4-8.2)
[2021-08-09] MEDS ORDERED: VALACYCLOVIR1000 M1 PO (20:09)
[2021-08-09] MEDS ORDERED: ONDA4ODT MM (20:09)
== END 2021-08-09 21:52 | disposition home or self-care (01) ==
LOC: ER 17:02
PROVIDERS: Physician Assistant
DX: N17.9 Acute kidney failure, unspecified (principal); E86.0 Dehydration; B01.9 Varicella without complication; B02.9 Zoster without complications; R10.84 Generalized abdominal pain; I10 Essential (primary) hypertension; E11.9 Type 2 diabetes mellitus without complications; K21.9 Gastro-esophageal reflux disease without esophagitis; G40.909 Epilepsy, unspecified, not intractable, without status epilepticus; F17.210 Nicotine dependence, cigarettes, uncomplicated; Z91.030 Bee allergy status; Z79.899 Other long term (current) drug therapy; Z79.82 Long term (current) use of aspirin
CPT/HCPCS: 36415; 80053; 83690; 83735; 84145; 85025; 93005; 93010; 96374; 96375; 99284-25; A9270; J1885; J2405; J7030

== ENCOUNTER 2021-08-15 16:41 | Emergency (ER) | payer OTHER ==
[~2021-08-15] VITALS: Ht 175.3 cm; Wt 72.6 kg
[~2021-08-15 16:41] MED LIST changes: +VALACYCLOVIR1000 M1 PO
[2021-08-15 18:20] LABS: BASOPHILS ABSOLUTE AUTO 0.02 K/mm3 (0.00-0.23); BASOPHILS PERCENT AUTO 0 % (0-2); EOSINOPHILS ABSOLUTE AUTO 0.06 K/mm3 (0.00-0.68); EOSINOPHILS PERCENT AUTO 1 % (0-6); Hematocrit 45.5 % (33.0-51.0); Hemoglobin 16.4 g/dL (11.5-16.0); IMMATURE GRAN ABSOLUTE AUTO 0.08 K/mm3 (0.00-0.10); IMMATURE GRAN PERCENT AUTO 1 % (0-1); LYMPHOCYTES ABSOLUTE AUTO 3.82 K/mm3 (0.84-5.20); LYMPHOCYTES PERCENT AUTO 31 % (21-46); MONOCYTES ABSOLUTE AUTO 0.75 K/mm3 (0.16-1.47); MONOCYTES PERCENT AUTO 6 % (4-13); Mean Corpuscular HGB 31.1 pg (26.0-34.0); Mean Corpuscular Volume 86 fL (80-100); Mean Platelet Volume 8.8 fL (9.1-12.4); NEUTROPHILS ABSOLUTE AUTO 7.69 K/mm3 (1.96-9.15); NEUTROPHILS PERCENT AUTO 62 % (41-73); Platelet Count 351 K/mm3 (150-400); RDW Coefficient Variation 11.5 % (11.7-14.2); RDW Standard Deviation 36.3 fL (35.1-46.3); Red Blood Cell Count 5.27 M/mm3 (3.80-5.20); White Blood Cell Count 12.42 K/mm3 (4.00-11.30)
[2021-08-15 18:41] LABS: Albumin, Blood 3.3 g/dL (3.4-5.0); Albumin/Globulin Ratio 0.8 (0.8-1.8); Bilirubin, Total 0.8 mg/dL (0.1-1.0); Bun/Creatinine Ratio 9.3 (12.0-20.0); Calcium, Blood 9.1 mg/dL (8.5-10.1); Creatinine, Blood 1.18 mg/dL (0.40-1.00); Globulin, Blood 3.9 g/dL (2.2-4.0); Potassium, Blood 3.1 mmol/L (3.5-5.5); Total Protein, Blood 7.2 g/dL (6.4-8.2)
== END 2021-08-15 20:31 | disposition left against medical advice (07) ==
LOC: ER 16:41
PROVIDERS: Physician Assistant
DX: R10.9 Unspecified abdominal pain (principal); R21 Rash and other nonspecific skin eruption; Z79.899 Other long term (current) drug therapy; Z79.82 Long term (current) use of aspirin; Z53.21 Procedure and treatment not carried out due to patient leaving prior to being seen by health care provider
CPT/HCPCS: 36415; 80053; 83690; 85025; 99283

== ENCOUNTER 2021-08-29 16:27 | Emergency (ER) | payer OTHER ==
[~2021-08-29] VITALS: Ht 172.7 cm; Wt 59.0 kg
[2021-08-29 17:48] LABS: BASOPHILS ABSOLUTE AUTO 0.03 K/mm3 (0.00-0.23); BASOPHILS PERCENT AUTO 0 % (0-2); EOSINOPHILS PERCENT AUTO 1 % (0-6); Hematocrit 44.5 % (33.0-51.0); Hemoglobin 15.8 g/dL (11.5-16.0); IMMATURE GRAN ABSOLUTE AUTO 0.05 K/mm3 (0.00-0.10); IMMATURE GRAN PERCENT AUTO 1 % (0-1); LYMPHOCYTES ABSOLUTE AUTO 2.57 K/mm3 (0.84-5.20); LYMPHOCYTES PERCENT AUTO 27 % (21-46); MONOCYTES ABSOLUTE AUTO 0.59 K/mm3 (0.16-1.47); MONOCYTES PERCENT AUTO 6 % (4-13); Mean Corpuscular HGB 31.5 pg (26.0-34.0); Mean Corpuscular HGB Conc 35.5 g/dL (31.5-36.5); Mean Corpuscular Volume 89 fL (80-100); Mean Platelet Volume 8.8 fL (9.1-12.4); NEUTROPHILS ABSOLUTE AUTO 6.32 K/mm3 (1.96-9.15); NEUTROPHILS PERCENT AUTO 66 % (41-73); RDW Coefficient Variation 11.9 % (11.7-14.2); RDW Standard Deviation 38.9 fL (35.1-46.3); Red Blood Cell Count 5.01 M/mm3 (3.80-5.20); White Blood Cell Count 9.66 K/mm3 (4.00-11.30)
[2021-08-29 17:57] LABS: Albumin, Blood 3.3 g/dL (3.4-5.0); Albumin/Globulin Ratio 0.9 (0.8-1.8); Bilirubin, Total 0.5 mg/dL (0.1-1.0); Bun/Creatinine Ratio 9.9 (12.0-20.0); Calcium, Blood 9.4 mg/dL (8.5-10.1); Creatinine, Blood 1.01 mg/dL (0.40-1.00); Globulin, Blood 3.6 g/dL (2.2-4.0); Potassium, Blood 4.2 mmol/L (3.5-5.5); Total Protein, Blood 6.9 g/dL (6.4-8.2)
[2021-08-29 18:13] LABS: Platelet Count 352 K/mm3 (150-400)
== END 2021-08-29 21:29 | disposition home or self-care (01) ==
LOC: ER 16:27
PROVIDERS: Emergency Medicine
DX: K59.00 Constipation, unspecified (principal); I10 Essential (primary) hypertension; G40.909 Epilepsy, unspecified, not intractable, without status epilepticus; E11.9 Type 2 diabetes mellitus without complications; K21.9 Gastro-esophageal reflux disease without esophagitis; F17.210 Nicotine dependence, cigarettes, uncomplicated; Z91.030 Bee allergy status; Z79.899 Other long term (current) drug therapy; Z79.82 Long term (current) use of aspirin
CPT/HCPCS: 36415; 74018; 80053; 83690; 85025; 93005; 93010; 96374; 99285-25; J2405; Q9967

== ENCOUNTER 2022-10-04 11:28 | Inpatient (IN) | payer OTHER ==
[~2022-10-04 11:28] MED LIST changes: -GABA300
[2022-10-06] MEDS ORDERED: ASPI81CH PO (12:04)
[2022-10-06] MEDS ORDERED: ATOR40TA PO (12:04)
[2022-10-06] MEDS ORDERED: LISI5 PO (12:04)
[2022-10-06] MEDS ORDERED: CLOP75 PO (12:04)
== END 2022-10-06 13:00 | disposition home or self-care (01) | DRG 247 ==
DX: I21.4 Non-ST elevation (NSTEMI) myocardial infarction (principal); I13.0 Hypertensive heart and chronic kidney disease with heart failure and stage 1 through stage 4 chronic kidney disease, or unspecified chronic kidney disease; I50.22 Chronic systolic (congestive) heart failure; N18.30 Chronic kidney disease, stage 3 unspecified; E11.22 Type 2 diabetes mellitus with diabetic chronic kidney disease; I25.10 Atherosclerotic heart disease of native coronary artery without angina pectoris; E78.5 Hyperlipidemia, unspecified; J44.9 Chronic obstructive pulmonary disease, unspecified; F17.210 Nicotine dependence, cigarettes, uncomplicated; F32.A Depression, unspecified; F41.9 Anxiety disorder, unspecified; G40.909 Epilepsy, unspecified, not intractable, without status epilepticus; K21.9 Gastro-esophageal reflux disease without esophagitis; I24.9 Acute ischemic heart disease, unspecified; Z90.49 Acquired absence of other specified parts of digestive tract; Z87.19 Personal history of other diseases of the digestive system; Z98.51 Tubal ligation status; Z90.710 Acquired absence of both cervix and uterus; Z91.038 Other insect allergy status; Z79.899 Other long term (current) drug therapy; Z79.52 Long term (current) use of systemic steroids; Z79.811 Long term (current) use of aromatase inhibitors; I25.2 Old myocardial infarction

== ENCOUNTER → 2024-09-14 | Outpatient (CLI) | payer OTHER ==
[~2024-09-14] MED LIST changes: +ASPI81CH PO; +ATOR40TA PO; +CLOP75 PO
[2024-09-14 12:11] LABS: BASOPHILS ABSOLUTE AUTO 0.02 K/mm3 (0.00-0.23); BASOPHILS PERCENT AUTO 0 % (0-2); EOSINOPHILS ABSOLUTE AUTO 0.08 K/mm3 (0.00-0.68); EOSINOPHILS PERCENT AUTO 1 % (0-6); Hematocrit 44.9 % (33.0-51.0); Hemoglobin 15.4 g/dL (11.5-16.0); IMMATURE GRAN ABSOLUTE AUTO 0.01 K/mm3 (0.00-0.10); IMMATURE GRAN PERCENT AUTO 0 % (0-1); LYMPHOCYTES ABSOLUTE AUTO 1.68 K/mm3 (0.84-5.20); LYMPHOCYTES PERCENT AUTO 24 % (21-46); MONOCYTES ABSOLUTE AUTO 0.48 K/mm3 (0.16-1.47); MONOCYTES PERCENT AUTO 7 % (4-13); Mean Corpuscular HGB 31.6 pg (26.0-34.0); Mean Corpuscular HGB Conc 34.3 g/dL (31.5-36.5); Mean Corpuscular Volume 92 fL (80-100); Mean Platelet Volume 9.4 fL (9.1-12.4); NEUTROPHILS ABSOLUTE AUTO 4.78 K/mm3 (1.96-9.15); NEUTROPHILS PERCENT AUTO 68 % (41-73); Platelet Count 281 K/mm3 (150-400); RDW Coefficient Variation 11.9 % (11.7-14.2); RDW Standard Deviation 40.1 fL (35.1-46.3); Red Blood Cell Count 4.88 M/mm3 (3.80-5.20); White Blood Cell Count 7.05 K/mm3 (4.00-11.30)
[2024-09-14 12:23] LABS: Albumin, Blood 4.4 g/dL (3.4-5.0); Albumin/Globulin Ratio 1.4 (0.8-1.8); Bilirubin, Total 0.7 mg/dL (0.1-1.0); Bun/Creatinine Ratio 7.6 (12.0-20.0); Calcium, Blood 9.5 mg/dL (8.5-10.1); Creatinine, Blood 1.44 mg/dL (0.40-1.00); Globulin, Blood 3.1 g/dL (2.2-4.0); Potassium, Blood 4.5 mmol/L (3.5-5.5); Total Protein, Blood 7.5 g/dL (6.4-8.2)
== END ==
LOC: LAB 12:07 → LAB SHORT 12:07
PROVIDERS: Chiropractor
DX: R07.89 Other chest pain (principal)
CPT/HCPCS: 80053; 84484; 85025; 85379

== ENCOUNTER 2025-10-22 07:48 | Observation (INO) | payer OTHER ==
[~2025-10-22] VITALS: Ht 172.7 cm; Wt 62.7 kg
[~2025-10-22 07:48] MED LIST changes: -ASPI81CH PO
[2025-10-22] MEDS ORDERED: Albuterol 2.5 MG/3 ML VIAL INH SCH ×2 (08:10→08:20)
[2025-10-22] MEDS ORDERED: Albuterol 2.5 MG/3 ML VIAL ONE (08:15)
[2025-10-22 08:37] LABS: BASOPHILS ABSOLUTE AUTO 0.04 K/mm3 (0.00-0.23); BASOPHILS PERCENT AUTO 0 % (0-2); EOSINOPHILS ABSOLUTE AUTO 0.29 K/mm3 (0.00-0.68); EOSINOPHILS PERCENT AUTO 2 % (0-6); Hematocrit 45.6 % (33.0-51.0); Hemoglobin 15.3 g/dL (11.5-16.0); IMMATURE GRAN ABSOLUTE AUTO 0.04 K/mm3 (0.00-0.10); IMMATURE GRAN PERCENT AUTO 0 % (0-1); LYMPHOCYTES ABSOLUTE AUTO 1.30 K/mm3 (0.84-5.20); LYMPHOCYTES PERCENT AUTO 10 % (21-46); MONOCYTES ABSOLUTE AUTO 0.73 K/mm3 (0.16-1.47); MONOCYTES PERCENT AUTO 6 % (4-13); Mean Corpuscular HGB Conc 33.6 g/dL (31.5-36.5); Mean Corpuscular Volume 94 fL (80-100); NEUTROPHILS ABSOLUTE AUTO 10.82 K/mm3 (1.96-9.15); NEUTROPHILS PERCENT AUTO 82 % (41-73); NRBC ABSOLUTE 0.00 K/mm3 (0.00-0.02); NRBC Auto 0.0 /100 WBC (0.0-0.2); Platelet Count 243 K/mm3 (150-400); RDW Coefficient Variation 11.9 % (11.7-14.2); RDW Standard Deviation 41.4 fL (35.1-46.3)
[2025-10-22 08:58] LABS: Alanine Aminotransfer (ALT/SGP 15.0 U/L (12-78); Albumin, Blood 3.8 g/dL (3.4-5.0); Albumin/Globulin Ratio 1.3 (0.8-1.8); Anion Gap 11.0 mmol/L (3-11); Aspartate Aminotrans (AST/SGOT 18.0 U/L (12-37); Bilirubin, Total 0.5 mg/dL (0.1-1.0); Blood Urea Nitrogen 16.0 mg/dL (8-24); CO2, Blood 20.0 mmol/L (21-32); Calcium, Blood 9.0 mg/dL (8.5-10.1); Chloride, Blood 112.0 mmol/L (98-108); Creatinine, Blood 1.15 mg/dL (0.40-1.00); Globulin, Blood 3.0 g/dL (2.2-4.0); Glucose, Blood 169.0 mg/dL (70-99); Potassium, Blood 3.8 mmol/L (3.5-5.5); Sodium, Blood 139.0 mmol/L (136-145); Total Protein, Blood 6.8 g/dL (6.4-8.2)
[2025-10-22 10:06] LABS: Influenza A, PCR NEGATIVE (NEGATIVE); Influenza B, PCR NEGATIVE (NEGATIVE); Resp Syncytial Virus, PCR NEGATIVE (NEGATIVE); SARS-Cov-2 (COVID-19) PCR, MMC NEGATIVE (NEGATIVE)
[2025-10-22 10:53] LABS: pH Blood Venous 7.36 (7.34-7.37)
[2025-10-22] MEDS ORDERED: FLU VACC TS2025(65UP)/MF59C/PF 45 MCG/0.5 ML SYRINGE IM SCH (14:05)
[2025-10-22] MEDS ORDERED: Ipratropium/Albuterol SulF 2.5-0.5MG/3 ML Amp INH SCH (14:55)
[2025-10-22 15:54] VITALS: BP 192/106
[2025-10-22 16:37] VITALS: BP 153/98
--- NOTE | 2025-10-22 17:47 | NUR ---
ADMISSION NOTE MS ALVAREZ WAS ADMITTED FROM THE ER AT 1545 TO MEDICAL UNIT. SHE WAS ABLE TO STAND AND TRANSFER FROM THE [facility] TO THE BED WITH MINIMAL ASSISTANCE BUT DOES GET SOB ON MINIMAL ACTIVITY. ON CONTINUOUS PULSE OX ON ROOM AIR IN THE 90S. WHEN SHE COUGHS SHE HAS COPIOUS SPUTUM, THIN, WHITE/YELLOW AND GETS SOB WITH COUGHING. MS ALVAREZ LIVES WITH HER CAREGIVER/BOYFRIEND WHO HELPS PREPARE HER MEALS, HELPS WITH ADLS. MS ALVAREZ DESCRIBES NIGHT SWEATS FOR THE PAST 2.5 MONTHS. TOLERATING PO FOOD AND FLUID. + TREMORS THAT SHE SAID ARE NOT BASELINE (DID GET CONTINUOUS NEB IN ER). SHE DECLINES THE FLU VACCINE. BP HIGH ON ARRIVAL, GIVEN METOPROLOL PO. RECHECK 150S SYSTOLIC. BED LOW, CALL LIGHT IN REACH.
[2025-10-22] MEDS ORDERED: Lactobacil 2-S.Thermo-Bifido 1 1 Cap PO SCH (21:00)
[2025-10-22 21:51] VITALS: BP 174/91
[2025-10-23 02:51] VITALS: BP 137/82
--- NOTE | 2025-10-23 06:19 | NUR ---
SHIFT SUMMARY- TELEPHONE ORDER RECEIVED FOR IBUPROPHEN FOR MILD PAIN. PATIENT COMPLAINED OF A MILD HEADACHE AND LEFT FLANK PAIN THAT IS WORSE WITH COUGHING. PATIENT HAS A PRODUCTIVE COUGH WITH THICK SPUTUM. SHE REPORTS HAVING A HARD TIME GETTING THE PHLEGM UP AND OUT. SHE HAS A PENDING SPUTUM LAB, SAMPLE HAS NOT BEEN COLLECTED. MEDICATIONS- WHOLE WITH WATER AMBULATION- SBA URINATION/DEFICATION- CONTINENT.
[2025-10-23 07:13] VITALS: BP 127/74
[2025-10-23 08:49] LABS: BASOPHILS ABSOLUTE AUTO 0.01 K/mm3 (0.00-0.23); BASOPHILS PERCENT AUTO 0 % (0-2); EOSINOPHILS ABSOLUTE AUTO 0.00 K/mm3 (0.00-0.68); EOSINOPHILS PERCENT AUTO 0 % (0-6); Hematocrit 39.9 % (33.0-51.0); Hemoglobin 13.4 g/dL (11.5-16.0); IMMATURE GRAN ABSOLUTE AUTO 0.06 K/mm3 (0.00-0.10); IMMATURE GRAN PERCENT AUTO 1 % (0-1); LYMPHOCYTES ABSOLUTE AUTO 0.57 K/mm3 (0.84-5.20); LYMPHOCYTES PERCENT AUTO 7 % (21-46); MONOCYTES ABSOLUTE AUTO 0.26 K/mm3 (0.16-1.47); MONOCYTES PERCENT AUTO 3 % (4-13); Mean Corpuscular HGB Conc 33.6 g/dL (31.5-36.5); Mean Corpuscular Volume 94 fL (80-100); NEUTROPHILS ABSOLUTE AUTO 7.62 K/mm3 (1.96-9.15); NEUTROPHILS PERCENT AUTO 89 % (41-73); NRBC ABSOLUTE 0.00 K/mm3 (0.00-0.02); NRBC Auto 0.0 /100 WBC (0.0-0.2); Platelet Count 222 K/mm3 (150-400); RDW Coefficient Variation 12.0 % (11.7-14.2); RDW Standard Deviation 41.6 fL (35.1-46.3)
[2025-10-23] MEDS ORDERED: Enoxaparin 40 MG/0.4 ML SYR SC SCH (09:00)
[2025-10-23 09:20] LABS: Magnesium, Blood 1.9 mg/dL (1.6-2.4); Thyroid Stimulating Hormone 0.193 uIU/mL (0.360-4.800)
[2025-10-23 09:21] LABS: Alanine Aminotransfer (ALT/SGP 31.0 U/L (12-78); Albumin, Blood 3.4 g/dL (3.4-5.0); Albumin/Globulin Ratio 1.1 (0.8-1.8); Anion Gap 11.0 mmol/L (3-11); Aspartate Aminotrans (AST/SGOT 33.0 U/L (12-37); Bilirubin, Total 0.6 mg/dL (0.1-1.0); Blood Urea Nitrogen 17.0 mg/dL (8-24); CO2, Blood 21.0 mmol/L (21-32); Calcium, Blood 8.6 mg/dL (8.5-10.1); Chloride, Blood 108.0 mmol/L (98-108); Creatinine, Blood 0.94 mg/dL (0.40-1.00); Globulin, Blood 3.1 g/dL (2.2-4.0); Glucose, Blood 261.0 mg/dL (70-99); Potassium, Blood 3.9 mmol/L (3.5-5.5); Sodium, Blood 136.0 mmol/L (136-145); Total Protein, Blood 6.5 g/dL (6.4-8.2)
[2025-10-23 15:09] VITALS: BP 124/108
[2025-10-23] MEDS ORDERED: Insulin Glargine-Yfgn 100 Unit/mL 3 ML SYR SC SCH (15:36)
[2025-10-23] MEDS ORDERED: Insulin Human Lispro 100 Units/ML 3ML Syringe SC SCH ×2 (16:30→17:30)
[2025-10-23] MEDS ORDERED: Formoterol/Mometasone MDI 5/200 mcg 13 GM INH SCH (18:15)
--- NOTE | 2025-10-23 19:16 | NUR ---
SHIFT SUMMARY PT IS A/OX3-4. NO ACUTE CHANGES THROUGHOUT THIS SHIFT. PT REMAINS ON RA, SATS >90% ON CONT PULSE. CORDERO IN PLACE DRAINING CLEAR, YELLOW URINE TO GRAVITY. ANTIBIOTICS STARTED THIS AFTERNOON PER JAN. INCONT BM THIS AFTERNOON. FAMILY AT BEDSIDE THROUGHOUT THIS SHIFT. PT IS PLEASANT AND COOPERATIVE WITH CARE.
[2025-10-23 19:49] VITALS: BP 127/76
--- NOTE | 2025-10-24 04:39 | NUR ---
SHIFT SUMMARY- PENDING SPUTUM LAB, SAMPLE HAS NOT BEEN COLLECTED. RESULTED TSH AND PENDING HIV TEST TO TRY AND EXPLAIN PATIENTS NIGHT SWEATS. MEDICATIONS- WHOLE WITH WATER AMBULATION- SBA URINATION/DEFICATION- CONTINENT.
[2025-10-24 05:28] VITALS: BP 141/75
[2025-10-24 06:34] LABS: BASOPHILS ABSOLUTE AUTO 0.01 K/mm3 (0.00-0.23); BASOPHILS PERCENT AUTO 0 % (0-2); EOSINOPHILS ABSOLUTE AUTO 0.00 K/mm3 (0.00-0.68); EOSINOPHILS PERCENT AUTO 0 % (0-6); Hematocrit 37.8 % (33.0-51.0); Hemoglobin 12.6 g/dL (11.5-16.0); IMMATURE GRAN ABSOLUTE AUTO 0.09 K/mm3 (0.00-0.10); IMMATURE GRAN PERCENT AUTO 1 % (0-1); LYMPHOCYTES ABSOLUTE AUTO 0.41 K/mm3 (0.84-5.20); LYMPHOCYTES PERCENT AUTO 3 % (21-46); MONOCYTES ABSOLUTE AUTO 0.44 K/mm3 (0.16-1.47); MONOCYTES PERCENT AUTO 3 % (4-13); Mean Corpuscular HGB Conc 33.3 g/dL (31.5-36.5); Mean Corpuscular Volume 94 fL (80-100); NEUTROPHILS ABSOLUTE AUTO 15.28 K/mm3 (1.96-9.15); NEUTROPHILS PERCENT AUTO 94 % (41-73); NRBC ABSOLUTE 0.00 K/mm3 (0.00-0.02); NRBC Auto 0.0 /100 WBC (0.0-0.2); Platelet Count 228 K/mm3 (150-400); RDW Coefficient Variation 12.2 % (11.7-14.2); RDW Standard Deviation 42.7 fL (35.1-46.3)
[2025-10-24 06:58] LABS: Anion Gap 11.0 mmol/L (3-11); Blood Urea Nitrogen 25.0 mg/dL (8-24); CO2, Blood 22.0 mmol/L (21-32); Calcium, Blood 8.5 mg/dL (8.5-10.1); Chloride, Blood 108.0 mmol/L (98-108); Creatinine, Blood 1.03 mg/dL (0.40-1.00); Glucose, Blood 324.0 mg/dL (70-99); Potassium, Blood 3.9 mmol/L (3.5-5.5); Sodium, Blood 137.0 mmol/L (136-145)
[2025-10-24 07:11] VITALS: BP 146/93
[2025-10-24] MEDS ORDERED: Tiotropium Bromide 2.5 MCG/ACT MIST INHAL (10 ACT/4 GM) INH SCH (08:35)
[2025-10-24] MEDS ORDERED: Ipratropium/Albuterol SulF 2.5-0.5MG/3 ML Amp INH PRN (08:40)
[2025-10-24] MEDS ORDERED: ONDA4ODT SL (12:58)
[2025-10-24] MEDS ORDERED: NICO21TP TOP (12:59)
[2025-10-24] MEDS ORDERED: FLUT1DIS5 INH (15:13)
[2025-10-24] MEDS ORDERED: GUAI600T33 PO (15:14)
[2025-10-24] MEDS ORDERED: IPRAT-ALBUT 0.5-3 ML (15:15)
[2025-10-24] MEDS ORDERED: PRED20 PO (15:17)
[2025-10-24] MEDS ORDERED: ANORO ELLIPTA1 EAC1 IH (15:18)
--- NOTE | 2025-10-24 16:18 | NUR ---
PT DISCHARGED 1525 WITH DC INSTRUCTIONS. CASE MANAGEMENT SET UP NEB SYSTEM AND WALKER TO BE DELIVERED TO PT'S HOUSE. WHEELCHAIR OUT TO PRIVATE CAR FOR DC. SIGN OTHER TO DRIVE HOME
[2025-10-25 15:29] LABS: HIV 1,2 COMBO ANTIGEN/ANTIBODY Negative (Negative)
== END 2025-10-24 15:24 | disposition home or self-care (01) ==
LOC: ER 07:48 → MEDS 07:49 → ENPENDDIS 10-24 12:06 → MEDS 10-24 15:24
PROVIDERS: Emergency Medicine; Student in an Organized Health Care Education/Training Program; ADMIT Internal Medicine
DX: J44.1 Chronic obstructive pulmonary disease with (acute) exacerbation (principal); J43.9 Emphysema, unspecified; K21.9 Gastro-esophageal reflux disease without esophagitis; I25.10 Atherosclerotic heart disease of native coronary artery without angina pectoris; I50.9 Heart failure, unspecified; N18.9 Chronic kidney disease, unspecified; E11.22 Type 2 diabetes mellitus with diabetic chronic kidney disease; I13.0 Hypertensive heart and chronic kidney disease with heart failure and stage 1 through stage 4 chronic kidney disease, or unspecified chronic kidney disease; E11.51 Type 2 diabetes mellitus with diabetic peripheral angiopathy without gangrene; J47.9 Bronchiectasis, uncomplicated; G40.909 Epilepsy, unspecified, not intractable, without status epilepticus; F17.210 Nicotine dependence, cigarettes, uncomplicated; Z88.5 Allergy status to narcotic agent; Z91.030 Bee allergy status; Z79.899 Other long term (current) drug therapy
CPT/HCPCS: 36415; 71045; 71250; 80048; 80053; 82803; 83735; 84443; 84484; 85025; 87389; 87637; 93005; 93010; 94640; 94664; 94762; 96374; 99285-25; A9270; G0378; J0456; J1650; J1815; J2470; J2919; J7050; J7120; J7512